=== PATIENT | female | born 1945 | race Caucasian/White ===

== ENCOUNTER 2016-11-13 08:26 | Emergency (ER) | payer MEDICARE, BC ==
[~2016-11-13] VITALS: Ht 157.5 cm; Wt 54.4 kg
[2016-11-13] MEDS ORDERED: LATANOPROST 0.005% (08:37)
[2016-11-13] MEDS ORDERED: LEVOTHYROXINE (08:37)
[2016-11-13] MEDS ORDERED: ALPRAZOLAM 0.5 MG (08:37)
[2016-11-13] MEDS ORDERED: PROAIR HFA 108 MCG/ACT AERS (08:37)
--- NOTE | 2016-11-13 08:38 | NUR ---
Dr Cordova at the bedside for eval and exam.
--- NOTE | 2016-11-13 08:58 | NUR ---
Pt out of ER for CT scan.
[2016-11-13 10:01] VITALS: BP 120/80
--- NOTE | 2016-11-13 10:07 | NUR ---
Patient discharged to home in stable conditon. Written and verbal after care instructions given. Patient verbalizes understanding of instructions.
== END 2016-11-13 10:08 | disposition home or self-care (01) ==
LOC: ER 08:26
DX: S40.011A Contusion of right shoulder, initial encounter (principal); S50.311A Abrasion of right elbow, initial encounter; W18.09XA Striking against other object with subsequent fall, initial encounter; Y93.89 Activity, other specified; Y92.9 Unspecified place or not applicable; Y99.9 Unspecified external cause status
CPT/HCPCS: 70450; 73030; 73080; 99284; A4663

== ENCOUNTER 2019-04-09 09:58 | Inpatient (IN) | payer MEDICARE, BC ==
[~2019-04-09] VITALS: Ht 157.5 cm; Wt 56.7 kg
--- NOTE | 2019-04-09 10:10 | NUR ---
Pt BIB [facility] for SOB and asthmatic episode from home. Patient ambulated with steady gait to bed. A/O x 3, no signs of neuro deficit.Pt c/o SOB while ambulating and non productive cough. Lungs are clear bilaterally, breathing is even and labored. Reports no chest pain, all pulses palpable , cap refil<3 seconds.Denies any GI/ symptoms. No n/v or abdominal pain. Decrease in skin turgor. Bed at lowest level, side rails upx2,call light in reach of patient.Fall precaution implemented per protocol.
[2019-04-09] MEDS ORDERED: methylPREDNISolone SOD SUCC 125 MG/2 ML VIAL IV ONE (10:15)
[2019-04-09] MEDS ORDERED: ALBUTEROL SULFATE 2.5 MG/3 ML NEBU NEB ONE (10:15)
[2019-04-09] MEDS ORDERED: IPRATROPIUM BROMIDE 0.5 MG/2.5 ML NEBU NEB ONE (10:15)
[2019-04-09] MEDS ORDERED: ALBUTEROL SULFATE 2.5 MG/3 ML NEBU ONE (10:16)
[2019-04-09] MEDS ORDERED: IPRATROPIUM BROMIDE 0.5 MG/2.5 ML NEBU ONE (10:17)
[2019-04-09] MEDS ORDERED: methylPREDNISolone SOD SUCC 125 MG/2 ML VIAL ONE (10:18)
[2019-04-09 10:24] LABS: BASOPHILS % (AUTO) 0.1 % (0.0-2.0); EOSINOPHILS # (AUTO) 0.1 K/uL (0.0-0.7); EOSINOPHILS % (AUTO) 0.6 % (0.0-7.0); HEMATOCRIT 44.6 % (31.2-41.9); HEMOGLOBIN 15.5 g/dL (10.9-14.3); LYMPHOCYTES # (AUTO) 0.7 K/uL (20.0-40.0); LYMPHOCYTES % (AUTO) 4.5 % (20.5-51.5); MEAN CORPUSCULAR HEMOGLOBIN 32.5 uug (24.7-32.8); MEAN CORPUSCULAR HGB CONC 35 g/dL (32.3-35.6); MEAN CORPUSCULAR VOLUME 93.4 fL (75.5-95.3); MONOCYTES # (AUTO) 0.8 K/uL (2.0-10.0); MONOCYTES % (AUTO) 5.2 % (0.0-11.0); NEUTROPHILS # (AUTO) 14.5 K/uL (1.8-8.9); NEUTROPHILS % (AUTO) 89.6 % (38.5-71.5); PLATELET COUNT (AUTO) 270 K/uL (179-408); RED BLOOD CELL COUNT(AUTO) 4.78 MIL/uL (3.63-4.92); WHITE BLOOD COUNT (AUTO) 16.2 K/uL (3.8-11.8)
[2019-04-09 10:27] LABS: CARBON DIOXIDE 22 mmol/L (21-32); CHLORIDE 99 mmol/L (98-107); CREATININE 0.8 mg/dL (0.6-1.3); GLUCOSE 161 mg/dL (74-106); POTASSIUM 3.7 mmol/L (3.5-5.1); UREA NITROGEN, BLOOD 21 mg/dL (7-18)
[2019-04-09] MEDS ORDERED: IV NORMAL SALINE 1000 ML BAG IV ONE ×2 (10:45→11:45)
[2019-04-09 10:46] LABS: ALANINE AMINOTRANSFERASE 40 U/L (14-59); ALKALINE PHOSPHATASE 80 U/L (50-136); ASPARTATE AMINOTRANSFERASE 24 U/L (15-37); BILIRUBIN,DIRECT 0.1 mg/dL (0.0-0.2); BILIRUBIN,TOTAL 0.6 mg/dL (0.2-1.0); TOTAL PROTEIN, SERUM 7.8 g/dL (6.4-8.2)
[2019-04-09] MEDS ORDERED: PIPERACILLIN SODIUM/TAZOBACTAM 3.375 G in IV DEXTROSE 5% 50 ML IV ONE (11:00)
[2019-04-09] MEDS ORDERED: PIPERACILLIN/TAZOBACTAM/D5W 50 ML IV ONE (11:22)
[2019-04-09 11:25] LABS: *BILIRUBIN,URIN NEGATIVE (NEGATIVE); *BLOOD, URINE NEGATIVE (NEGATIVE); *CLARITY,URINE CLEAR (CLEAR); *COLOR,URINE YELLOW (YELLOW); *KETONES,URINE NEGATIVE (NEGATIVE); *UROBILINOGEN,URINE 0.2 E.U./dl (NORMAL); LEUKOCYTE ESTERASE ,URINE NEGATIVE (NEGATIVE); NITRITE, URINE NEGATIVE (NEGATIVE); UGLUCOSE NEGATIVE (NEGATIVE)
--- NOTE | 2019-04-09 12:19 | NUR ---
Kymberly Soares, DO at bedside evaluating patient
--- NOTE | 2019-04-09 12:48 | NUR ---
Report given to SHARI Crisostomo
--- NOTE | 2019-04-09 12:48 | NUR ---
Patient transported to Tele in stable condition.
--- NOTE | 2019-04-09 12:48 | NUR ---
Fluids still infusing, about 500ml left in bag, SEPSIS fluid reassessment needs to be completed on inpatient floor.
[2019-04-09 12:50] VITALS: BP 123/70
--- NOTE | 2019-04-09 13:02 | NUR ---
ADMITTED FROM HOME VIA ER, A 73 YEAR OLD FEMALE WITH ADMITTING DIAGNOSIS OF SOB SECONDARY TO ASTHMA EXACERBATION. AWAKE, ALERT, AND ORIENTED X3. ABLE TO HELP WITH ADMISSION ASSESSMENT. PATIENT ON ROOM AIR, SATURATING 97%. WILL CALL DR. GUY FOR ADMISSION ORDERS.
[2019-04-09] MEDS ORDERED: ZOLPIDEM 5 MG TABLET PO PRN (14:00)
[2019-04-09] MEDS ORDERED: MAGNESIUM HYDROXIDE 30 ML LIQUID UDC PO PRN (14:00)
[2019-04-09] MEDS ORDERED: ONDANSETRON 4 MG/2 ML VIAL IV PRN (14:00)
[2019-04-09] MEDS ORDERED: ACETAMINOPHEN 325 MG TABLET PO PRN (14:00)
[2019-04-09] MEDS ORDERED: PIPERACILLIN SODIUM/TAZOBACTAM 3.375 G in IV DEXTROSE 5% 50 ML IV SCH (14:00)
[2019-04-09] MEDS ORDERED: Z GUARD REMEDY PASTE 57 GM TUBE TOP PRN (14:00)
[2019-04-09] MEDS ORDERED: HYDROCODONE/APAP 5-325MG TABLET PO PRN (14:00)
[2019-04-09] MEDS: methylPREDNISolone SOD SUCC 40 MG/ML VIAL IV SCH ×2 (14:32→21:14)
[2019-04-09 15:44] VITALS: BP 112/66
[2019-04-09] MEDS: ALBUTEROL SULFATE 2.5 MG/ 0.5 ML NEBU NEB PRN ×2 (17:31→20:47)
[2019-04-09] MEDS: IPRATROPIUM BROMIDE 0.5 MG/2.5 ML NEBU NEB PRN ×2 (17:32→20:47)
--- NOTE | 2019-04-09 17:47 | NUR ---
REMAINS SR ON MONITOR, TOLERATING RA WITH SAT AT 95-97%. HHN TX PRN GIVEN. OBSERVED
--- NOTE | 2019-04-09 20:00 | NUR ---
AWAKE,ALERTX4,PATIENTWANTED TO WALK, WALKED UP TO THE ELEVATOR TWICE,NO SOB.HEPLOCK CHANGED FROM RIGHT ANTECUBITAL TO LEFT HAND IN THE FOREARM, WANTED XANAX 5MG ,TOLD PATIENT THATS TOO MUCH,VERBALIZED SHE HAS BEEN TAKING 5MG FOR A LONG TIME WHEN SHE NEEDS IT.SOMETIMES TAKE 2.[address] GUY ORDERED ONLY 2.5 MG, PATIENT WANTS 5 MG, ENCOURAGE TO TAKE 2,5 MG TO MAKE HER BETTER,TOOK MEDICINE, MAKE COMFORTABLE.
[2019-04-09] MEDS: PIPERACILLIN/TAZOBACTAM/D5W 3.375 G in IV DEXTROSE 5% 50 ML IV SCH (21:14)
[2019-04-09] MEDS ORDERED: ALPRAZOLAM 0.25 MG TABLET PO ONE (21:15)
[2019-04-09] MEDS ORDERED: PIPERACILLIN/TAZOBACTAM/D5W 3.375 G in PREMIXED 1 EACH IV SCH (22:00)
[2019-04-10] MEDS: methylPREDNISolone SOD SUCC 40 MG/ML VIAL IV SCH ×3 (05:29→21:33)
[2019-04-10] MEDS: PIPERACILLIN/TAZOBACTAM/D5W 3.375 G in IV DEXTROSE 5% 50 ML IV SCH ×3 (05:29→21:33)
[2019-04-10 06:31] LABS: HEMATOCRIT 41.6 % (31.2-41.9); HEMOGLOBIN 14.4 g/dL (10.9-14.3); LYMPHOCYTES # (AUTO) 1.3 K/uL (20.0-40.0); LYMPHOCYTES % (AUTO) 9.6 % (20.5-51.5); MEAN CORPUSCULAR HEMOGLOBIN 33.5 uug (24.7-32.8); MEAN CORPUSCULAR HGB CONC 35 g/dL (32.3-35.6); MEAN CORPUSCULAR VOLUME 96.7 fL (75.5-95.3); MONOCYTES # (AUTO) 0.6 K/uL (2.0-10.0); MONOCYTES % (AUTO) 4.4 % (0.0-11.0); NEUTROPHILS # (AUTO) 11.8 K/uL (1.8-8.9); PLATELET COUNT (AUTO) 264 K/uL (179-408); WHITE BLOOD COUNT (AUTO) 13.7 K/uL (3.8-11.8)
[2019-04-10] MEDS: PANTOPRAZOLE SODIUM 40 MG TABLET.DR PO SCH (06:31)
[2019-04-10 06:46] LABS: CREATININE 0.6 mg/dL (0.6-1.3); MAGNESIUM 2.4 mg/dL (1.8-2.4); PHOSPHOROUS 3.2 mg/dL (2.5-4.9); POTASSIUM 3.6 mmol/L (3.5-5.1)
[2019-04-10 06:58] LABS: THYROID STIMULATING HORMONE 0.059 mIU/mL (0.358-3.740)
--- NOTE | 2019-04-10 07:41 | NUR ---
slept most of the nite,sinus rhythm, vital signs stable,still sleeping.up to the bathroom with help.
--- NOTE | 2019-04-10 08:00 | NUR ---
PATIENT RESTING COMFORTABLY IN BED IN ROOM AIR. NO SIGNS OF DISTRESS OR SOB. SINUS RHYTHM ON MONITOR.
--- NOTE | 2019-04-10 10:00 | NUR ---
SEEN BY DR. GUY. NO NEW ORDERS AND CONTINUE PLAN OF CARE. BREATHING TREATMENT NEED. STILL COUGHING GREEN SPUTUM. AWAITING SPUTUM CULTURE.
[2019-04-10 11:04] VITALS: BP 111/60
[2019-04-10] MEDS: ALBUTEROL SULFATE 2.5 MG/ 0.5 ML NEBU NEB PRN (14:06)
[2019-04-10] MEDS: IPRATROPIUM BROMIDE 0.5 MG/2.5 ML NEBU NEB PRN (14:06)
[2019-04-10 15:31] VITALS: BP 121/51
--- NOTE | 2019-04-10 18:56 | NUR ---
NO ACUTE CHANGE. CONTINUE ROOM AIR WITHOUT ANY DISTRESS. UP AND ABOUT. SINUS RHYTHM ON MONITOR.
--- NOTE | 2019-04-10 19:30 | NUR ---
RECEIVED PT AWAKE, ALERT AND ORIENTEDX4. PT SEEN IN THE HALLWAY WALKING FOR EXERCISE. PT IN NO ACUTE DISTRESS. IV INTACT. SAFETY AND COMFORT PROVIDED. WILL CONTINUE TO MONITOR.
[2019-04-10 20:00] VITALS: BP 120/57
[2019-04-11] VITALS: BP 110/57
[2019-04-11 04:30] VITALS: BP 118/48
[2019-04-11] MEDS: PIPERACILLIN/TAZOBACTAM/D5W 3.375 G in IV DEXTROSE 5% 50 ML IV SCH (05:03)
[2019-04-11] MEDS: methylPREDNISolone SOD SUCC 40 MG/ML VIAL IV SCH (05:04)
[2019-04-11] MEDS: PANTOPRAZOLE SODIUM 40 MG TABLET.DR PO SCH (06:04)
[2019-04-11 06:25] LABS: BASOPHILS % (AUTO) 0.2 % (0.0-2.0); HEMATOCRIT 40.1 % (31.2-41.9); HEMOGLOBIN 13.9 g/dL (10.9-14.3); LYMPHOCYTES # (AUTO) 1.3 K/uL (20.0-40.0); LYMPHOCYTES % (AUTO) 9.5 % (20.5-51.5); MEAN CORPUSCULAR HEMOGLOBIN 33.7 uug (24.7-32.8); MEAN CORPUSCULAR HGB CONC 35 g/dL (32.3-35.6); MEAN CORPUSCULAR VOLUME 97.2 fL (75.5-95.3); MONOCYTES # (AUTO) 1.1 K/uL (2.0-10.0); MONOCYTES % (AUTO) 8.3 % (0.0-11.0); PLATELET COUNT (AUTO) 274 K/uL (179-408); RED BLOOD CELL COUNT(AUTO) 4.12 MIL/uL (3.63-4.92); WHITE BLOOD COUNT (AUTO) 13.5 K/uL (3.8-11.8)
[2019-04-11 06:27] LABS: CREATININE 0.7 mg/dL (0.6-1.3); MAGNESIUM 2.3 mg/dL (1.8-2.4); PHOSPHOROUS 3.4 mg/dL (2.5-4.9); POTASSIUM 3.6 mmol/L (3.5-5.1)
--- NOTE | 2019-04-11 06:27 | NUR ---
PT SLEPT INTERMITTENTLY. PRESCRIBED MEDICATION GIVEN AND PT TOLERATED IT WELL. IV INTACT. PT COMPLAINING THAT SHE HAS URINARY RETENTION. BLADDER SCAN SHOWS 14ML .PT ASKING FOR HER PROBIOTICS. WILL ENDORSE TO INCOMING NURSE. SAFETY AND COMFORT PROVIDED. ALL NEEDS ARE MET. WILL ENDORSE ACCORDINGLY TO INCOMING NURSE FOR CONTINUITY OF CARE.
--- NOTE | 2019-04-11 08:00 | NUR ---
Received pt. resting in bed alert oriented x4. pt. denies pain/ discomfort. pt. denies SOB/ difficulty breathing. IV in L wrist 20 gauge intact patent saline lock. pt. on room air. Safety measures in place. call light within reach. Will continue to monitor pt.
[2019-04-11] MEDS: IPRATROPIUM BROMIDE 0.5 MG/2.5 ML NEBU NEB PRN (08:57)
[2019-04-11] MEDS: ALBUTEROL SULFATE 2.5 MG/ 0.5 ML NEBU NEB PRN (08:57)
--- NOTE | 2019-04-11 11:30 | NUR ---
Pt. discharged home via private car with friend. pt. discharged to home self-care. pt. does not want to take prescribed antibiotics. Dr. Soares aware. Pt. states she will get antibiotics from PCP. IV removed. ID band removed. stone paver walked pt. downstairs. All belongings with pt. Pt. signed all discharge paperwork.
[2019-04-11 11:52] VITALS: BP 113/57
== END 2019-04-11 12:00 | disposition home health service (06) | DRG 871 ==
LOC: ER 09:58 → TELE3 12:32
PROVIDERS: ADMIT Student in an Organized Health Care Education/Training Program; ATTEND Student in an Organized Health Care Education/Training Program
DX: A41.9 Sepsis, unspecified organism (principal); J15.6 Pneumonia due to other Gram-negative bacteria; J44.1 Chronic obstructive pulmonary disease with (acute) exacerbation; J44.0 Chronic obstructive pulmonary disease with (acute) lower respiratory infection; J45.901 Unspecified asthma with (acute) exacerbation; E87.2 Acidosis; E87.1 Hypo-osmolality and hyponatremia; I70.0 Atherosclerosis of aorta; E86.0 Dehydration; E03.9 Hypothyroidism, unspecified
CPT/HCPCS: 36415; 70030-TC; 71045; 83605; 83735; 84100; 84443; 85025; 87040; 87070; 87077; 87086; 87400; 93005; 94640; 94664; A4663; G0378; J2543; J2920; J2930; J3590; J7030; J7060

== ENCOUNTER 2020-01-11 15:38 | Emergency (ER) | payer MEDICARE, BC ==
[~2020-01-11] VITALS: Ht 157.5 cm; Wt 59.0 kg
[~2020-01-11 15:38] MED LIST: ALBU8.5H8 INH; ALPR0.5T8 PO; AMOX-430 PO; CETI-90 PO; FLUT1BLS IH; LATA2.5D15 EACHEYE; LEVO112T5 PO; MONT10TA22 PO; PRED20TA PO
[2020-01-11 16:56] LABS: BASOPHILS # (AUTO) 0.1 K/uL (0.0-8.0); BASOPHILS % (AUTO) 0.9 % (0.0-2.0); EOSINOPHILS # (AUTO) 0.3 K/uL (0.0-0.7); EOSINOPHILS % (AUTO) 4.6 % (0.0-7.0); HEMOGLOBIN 14.9 g/dL (10.9-14.3); LYMPHOCYTES # (AUTO) 2.2 K/uL (20.0-40.0); LYMPHOCYTES % (AUTO) 28.9 % (20.5-51.5); MEAN CORPUSCULAR HEMOGLOBIN 33.4 uug (24.7-32.8); MEAN CORPUSCULAR HGB CONC 35 g/dL (32.3-35.6); MEAN CORPUSCULAR VOLUME 96.2 fL (75.5-95.3); MONOCYTES # (AUTO) 0.7 K/uL (2.0-10.0); MONOCYTES % (AUTO) 9.5 % (0.0-11.0); NEUTROPHILS # (AUTO) 4.3 K/uL (1.8-8.9); NEUTROPHILS % (AUTO) 56.1 % (38.5-71.5); PLATELET COUNT (AUTO) 278 K/uL (179-408); RED BLOOD CELL COUNT(AUTO) 4.47 MIL/uL (3.63-4.92); WHITE BLOOD COUNT (AUTO) 7.6 K/uL (3.8-11.8)
[2020-01-11] MEDS ORDERED: TDAP DIPH,PERTUSS,TET VAC/PF 0.5 ML DISP.SYRIN IM ONE ×2 (17:00→17:06)
[2020-01-11 17:07] LABS: BILIRUBIN,DIRECT 0.1 mg/dL (0.0-0.2); BILIRUBIN,TOTAL 0.3 mg/dL (0.2-1.0); CREATININE 0.8 mg/dL (0.6-1.3); POTASSIUM 4.1 mmol/L (3.5-5.1); TOTAL PROTEIN, SERUM 7.4 g/dL (6.4-8.2)
--- NOTE | 2020-01-11 17:12 | NUR ---
Patient is resting comfortably on gurney while using her personal electronic device, NAD, calm & breathing easily.
--- NOTE | 2020-01-11 17:36 | NUR ---
Patient discharged to home in stable condition with brisk steady gait. Written and verbal after care instructions given to patient. Patient verbalizes understanding & compliance of instructions. Stressed follow up with her primary doctor or return to ER for worsening s/s.
== END 2020-01-11 17:36 | disposition home or self-care (01) ==
LOC: ER 15:42
DX: R19.5 Other fecal abnormalities (principal); R42 Dizziness and giddiness; S50.811A Abrasion of right forearm, initial encounter; S70.02XA Contusion of left hip, initial encounter; W01.0XXA Fall on same level from slipping, tripping and stumbling without subsequent striking against object, initial encounter; Y93.89 Activity, other specified; Y99.8 Other external cause status; Z91.018 Allergy to other foods; Z79.899 Other long term (current) drug therapy; R03.0 Elevated blood-pressure reading, without diagnosis of hypertension
CPT/HCPCS: 36415; 70030-TC; 83690; 85025; 85730; 86850; 86900; 86901; 90715; 93005; A4663

== ENCOUNTER 2020-04-25 21:49 | Emergency (ER) | payer MEDICARE, OTHER ==
[~2020-04-25] VITALS: Ht 157.5 cm; Wt 54.4 kg
[2020-04-25] MEDS ORDERED: LIDOCAINE HCL 2% 20 ML VIAL IJ ONE (22:15)
[2020-04-25] MEDS ORDERED: PIPERACILLIN SODIUM/TAZOBACTAM 3.375 G in IV DEXTROSE 5% 50 ML IV ONE (22:15)
[2020-04-25] MEDS ORDERED: TDAP DIPH,PERTUSS,TET VAC/PF 0.5 ML DISP.SYRIN IM ONE ×2 (22:15→22:33)
[2020-04-25] MEDS ORDERED: LIDOCAINE HCL 2% 20 ML VIAL ONE (22:21)
[2020-04-25] MEDS ORDERED: AMOX-430 PO (22:25)
[2020-04-25] MEDS ORDERED: PIPERACILLIN/TAZOBACTAM/D5W 50 ML IV ONE (22:32)
--- NOTE | 2020-04-25 23:05 | NUR ---
PT WAS EVALUATED BY DR AGUIRRE. PT WAS D/C'd TO HOME. D/C INSTRUCTIONS GIVEN TO THE PT BY DR AGUIRRE.
[2020-04-25 23:14] VITALS: BP 115/69
[2020-04-26] MEDS ORDERED: AMOX-430 PO (09:10)
== END 2020-04-25 23:14 | disposition home or self-care (01) ==
LOC: ER 21:50
DX: S61.250A Open bite of right index finger without damage to nail, initial encounter (principal); W55.01XA Bitten by cat, initial encounter; Y92.89 Other specified places as the place of occurrence of the external cause
CPT/HCPCS: 12001; 90471; 90715; 96365; 99284; J2543; J3490; A4663

== ENCOUNTER 2021-11-28 11:38 | Emergency (ER) | payer MEDICARE, OTHER ==
[~2021-11-28] VITALS: Ht 157.5 cm; Wt 56.7 kg
--- NOTE | 2021-11-28 12:33 | NUR ---
at bedside for evaluation.
--- NOTE | 2021-11-28 14:10 | NUR ---
Patient discharged to home in stable condition. Written and verbal after care instructions given. Patient verbalizes understanding of instructions. Stressed follow up or return to ER for worsening s/s.
[2021-11-28 14:26] VITALS: BP 121/70
== END 2021-11-28 14:10 | disposition home or self-care (01) ==
LOC: ER 12:03
DX: M79.662 Pain in left lower leg (principal); J45.909 Unspecified asthma, uncomplicated; S80.12XA Contusion of left lower leg, initial encounter; W10.1XXA Fall (on)(from) sidewalk curb, initial encounter; Y92.89 Other specified places as the place of occurrence of the external cause; Z91.018 Allergy to other foods; L30.9 Dermatitis, unspecified
CPT/HCPCS: A4663

== ENCOUNTER 2022-12-20 19:14 | Inpatient (IN) | payer MEDICARE, OTHER ==
[~2022-12-20] VITALS: Ht 157.5 cm; Wt 55.3 kg
[2022-12-20] MEDS ORDERED: LEVO88TA5 PO (20:19)
[2022-12-20] MEDS ORDERED: ONDANSETRON 4 MG/2 ML VIAL ONE (20:23)
[2022-12-20] MEDS ORDERED: KETOROLAC TROMETHAMINE 15 MG INJ ONE (20:23)
[2022-12-20] MEDS ORDERED: ONDANSETRON 4 MG/2 ML VIAL IV ONE (20:30)
[2022-12-20] MEDS ORDERED: KETOROLAC TROMETHAMINE 15 MG INJ IVP ONE (20:30)
[2022-12-20] MEDS ORDERED: IV NORMAL SALINE 1000 ML BAG IV ONE (20:30)
[2022-12-20 20:40] LABS: BASOPHILS # (AUTO) 0.1 K/UL (0.0-0.2); BASOPHILS % (AUTO) 0.8 % (0.0-2.0); EOSINOPHILS # (AUTO) 0.1 K/uL (0.0-0.7); EOSINOPHILS % (AUTO) 1.2 % (0.0-7.0); HEMATOCRIT 46.7 % (31.2-41.9); HEMOGLOBIN 15.8 g/dL (10.9-14.3); LYMPHOCYTES # (AUTO) 2.1 K/uL (0.8-4.8); LYMPHOCYTES % (AUTO) 19.5 % (20.5-51.5); MEAN CORPUSCULAR HEMOGLOBIN 32.4 uug (24.7-32.8); MEAN CORPUSCULAR HGB CONC 34 g/dL (32.3-35.6); MONOCYTES % (AUTO) 9.4 % (0.0-11.0); NEUTROPHILS # (AUTO) 7.5 K/uL (1.8-8.9); NEUTROPHILS % (AUTO) 69.1 % (38.5-71.5); PLATELET COUNT (AUTO) 330 K/uL (179-408); RED BLOOD CELL COUNT(AUTO) 4.87 MIL/uL (3.63-4.92); RED CELL DISTRIBUTION WIDTH 14.1 % (12.3-17.7); WHITE BLOOD COUNT (AUTO) 10.8 K/uL (3.8-11.8)
[2022-12-20 20:42] LABS: DIFFERENTIAL COMMENT 1
[2022-12-20 20:49] LABS: CALCIUM 9.9 mg/dL (8.5-10.1); CARBON DIOXIDE 23 mmol/L (21-32); CHLORIDE 100 mmol/L (98-107); CREATININE 0.7 mg/dL (0.6-1.3); GLUCOSE 127 mg/dL (74-106); SODIUM SERUM 137 mmol/L (136-145); UREA NITROGEN, BLOOD 19 mg/dL (7-18)
[2022-12-20 21:04] LABS: ALANINE AMINOTRANSFERASE 38 U/L (14-59); ALBUMIN 3.4 g/dL (3.4-5.0); ALKALINE PHOSPHATASE 81 U/L (50-136); ASPARTATE AMINOTRANSFERASE 27 U/L (15-37); BILIRUBIN,DIRECT 0.1 mg/dL (0.0-0.2); BILIRUBIN,TOTAL 0.4 mg/dL (0.2-1.0); TOTAL PROTEIN, SERUM 7.6 g/dL (6.4-8.2)
[2022-12-20 23:38] VITALS: BP 128/65; TEMP 98.3; O2SAT 96
[2022-12-21] MEDS ORDERED: MAGNESIUM HYDROXIDE 30 ML LIQUID UDC PO PRN
[2022-12-21] MEDS ORDERED: KETOROLAC TROMETHAMINE 15 MG INJ IVP PRN
[2022-12-21] MEDS ORDERED: ONDANSETRON 4 MG/2 ML VIAL IV PRN
[2022-12-21] MEDS ORDERED: ZOLPIDEM 5 MG TABLET PO PRN
[2022-12-21] MEDS ORDERED: IV D5 1/2 NS 1000 ML 1,000 ML IV PRN
[2022-12-21] MEDS ORDERED: REMEDY ESSENTIAL ZINC PASTE 113 GM TP PRN
[2022-12-21] MEDS ORDERED: ACETAMINOPHEN 325 MG TABLET PO PRN
[2022-12-21] MEDS ORDERED: ALPRAZOLAM 0.5 MG TABLET PO PRN
[2022-12-21] MEDS ORDERED: ENOXAPARIN SODIUM 40 MG/0.4 ML DISP.SYRIN SQ SCH
[2022-12-21] MEDS ORDERED: ALBUTEROL SULFATE 2.5 MG/3 ML NEBU NEB PRN (00:30)
[2022-12-21] MEDS ORDERED: LORAZEPAM 2 MG/1 ML VIAL IV PRN (01:00)
[2022-12-21 04:00] VITALS: BP 128/72; TEMP 98.2; O2SAT 95
[2022-12-21] MEDS: PANTOPRAZOLE SODIUM 40 MG TABLET.DR PO SCH ×2 (06:43→08:06)
[2022-12-21 07:11] LABS: BASOPHILS # (AUTO) 0.1 K/UL (0.0-0.2); BASOPHILS % (AUTO) 1.2 % (0.0-2.0); EOSINOPHILS # (AUTO) 0.4 K/uL (0.0-0.7); EOSINOPHILS % (AUTO) 6.3 % (0.0-7.0); HEMATOCRIT 38.6 % (31.2-41.9); HEMOGLOBIN 13.3 g/dL (10.9-14.3); LYMPHOCYTES # (AUTO) 2.3 K/uL (0.8-4.8); LYMPHOCYTES % (AUTO) 32.9 % (20.5-51.5); MEAN CORPUSCULAR HGB CONC 34 g/dL (32.3-35.6); MEAN CORPUSCULAR VOLUME 96.1 fL (75.5-95.3); MONOCYTES # (AUTO) 0.8 K/uL (0.1-1.30); MONOCYTES % (AUTO) 10.7 % (0.0-11.0); NEUTROPHILS # (AUTO) 3.4 K/uL (1.8-8.9); NEUTROPHILS % (AUTO) 48.9 % (38.5-71.5); PLATELET COUNT (AUTO) 276 K/uL (179-408); RED BLOOD CELL COUNT(AUTO) 4.02 MIL/uL (3.63-4.92); RED CELL DISTRIBUTION WIDTH 13.9 % (12.3-17.7)
[2022-12-21 07:26] LABS: DIFFERENTIAL COMMENT 1
[2022-12-21 07:37] LABS: CALCIUM 7.9 mg/dL (8.5-10.1); CARBON DIOXIDE 25 mmol/L (21-32); CHLORIDE 106 mmol/L (98-107); CREATININE 0.6 mg/dL (0.6-1.3); GLUCOSE 102 mg/dL (74-106); PHOSPHOROUS 2.9 mg/dL (2.5-4.9); POTASSIUM 3.8 mmol/L (3.5-5.1); SODIUM SERUM 138 mmol/L (136-145); UREA NITROGEN, BLOOD 14 mg/dL (7-18)
[2022-12-21 08:05] LABS: MAGNESIUM 2.2 mg/dL (1.8-2.4)
[2022-12-21] MEDS: FLUTICASONE/VILANTEROL 1 EACH BLST.W.DEV IH SCH ×2 (09:00→13:23)
[2022-12-21] MEDS ORDERED: LEVOTHYROXINE SODIUM 88 MCG TABLET PO SCH (09:00)
[2022-12-21 11:38] VITALS: BP 130/68; TEMP 97.6; O2SAT 98
[2022-12-21] MEDS ORDERED: CETIRIZINE HCL 10 MG TABLET PO SCH (17:00)
[2022-12-21] MEDS ORDERED: MONTELUKAST SODIUM 10 MG TABLET PO SCH (17:00)
[2022-12-21] MEDS ORDERED: LATANOPROST OPHT DROP 2.5 ML BOTTLE EACHEYE SCH (18:00)
== END 2022-12-21 14:20 | disposition home or self-care (01) | DRG 392 ==
LOC: ER 19:23 → MEDSURG3 22:26
PROVIDERS: ADMIT Student in an Organized Health Care Education/Training Program; ATTEND Nurse Practitioner Acute Care
DX: A09 Infectious gastroenteritis and colitis, unspecified (principal); E86.0 Dehydration; T39.395A Adverse effect of other nonsteroidal anti-inflammatory drugs [NSAID], initial encounter; K25.9 Gastric ulcer, unspecified as acute or chronic, without hemorrhage or perforation; K52.89 Other specified noninfective gastroenteritis and colitis; Y92.89 Other specified places as the place of occurrence of the external cause; M19.031 Primary osteoarthritis, right wrist; L30.9 Dermatitis, unspecified; J45.909 Unspecified asthma, uncomplicated; R79.89 Other specified abnormal findings of blood chemistry; K57.30 Diverticulosis of large intestine without perforation or abscess without bleeding; Z66 Do not resuscitate; Z79.51 Long term (current) use of inhaled steroids; Z98.890 Other specified postprocedural states; Z87.19 Personal history of other diseases of the digestive system; Z79.899 Other long term (current) drug therapy; Z88.2 Allergy status to sulfonamides; Z91.018 Allergy to other foods
CPT/HCPCS: 36415; 71045; 83605; 83690; 83735; 84100; 84484; 85025; 85730; 93005; A4663; G0378; J1650; J1885; J2060; J2405; J7040

== ENCOUNTER 2023-03-03 14:37 | Inpatient (IN) | payer MEDICARE, OTHER ==
[~2023-03-03] VITALS: Ht 157.5 cm; Wt 53.1 kg
[~2023-03-03 14:37] MED LIST changes: -AMOX-430 PO; -LEVO112T5 PO; +LEVO88TA5 PO; -PRED20TA PO
[2023-03-03] MEDS ORDERED: IV NORMAL SALINE 1000 ML BAG IV ONE (14:45)
[2023-03-03] MEDS ORDERED: ONDANSETRON 4 MG/2 ML VIAL IV ONE ×2 (14:45→17:00)
[2023-03-03] MEDS ORDERED: FAMOTIDINE. 20 MG/2 ML VIAL IV ONE ×2 (14:45→14:50)
[2023-03-03] MEDS ORDERED: LIDOCAINE VISCUS 2% 15 ML UDC MM ONE (14:45)
[2023-03-03] MEDS ORDERED: MAG HYDROX/AL HYDROX/SIMETH 30 ML LIQUID UDC PO ONE (14:45)
[2023-03-03] MEDS ORDERED: MAG HYDROX/AL HYDROX/SIMETH 30 ML LIQUID UDC ONE (14:50)
[2023-03-03] MEDS ORDERED: ONDANSETRON 4 MG/2 ML VIAL ONE (14:50)
[2023-03-03] MEDS ORDERED: LIDOCAINE VISCUS 2% 15 ML UDC ONE (14:50)
[2023-03-03 15:14] LABS: BASOPHILS # (AUTO) 0.4 K/UL (0.0-0.2); BASOPHILS % (AUTO) 3.2 % (0.0-2.0); CALCIUM 9.4 mg/dL (8.5-10.1); CARBON DIOXIDE 24 mmol/L (21-32); CHLORIDE 102 mmol/L (98-107); CREATININE 0.7 mg/dL (0.6-1.3); DIFFERENTIAL COMMENT 0; EOSINOPHILS # (AUTO) 0.5 K/uL (0.0-0.7); EOSINOPHILS % (AUTO) 3.6 % (0.0-7.0); GLUCOSE 138 mg/dL (74-106); HEMATOCRIT 43.9 % (31.2-41.9); HEMOGLOBIN 14.7 g/dL (10.9-14.3); LYMPHOCYTES # (AUTO) 1.3 K/uL (0.8-4.8); LYMPHOCYTES % (AUTO) 10.6 % (20.5-51.5); MEAN CORPUSCULAR HEMOGLOBIN 32.6 uug (24.7-32.8); MEAN CORPUSCULAR HGB CONC 34 g/dL (32.3-35.6); MEAN CORPUSCULAR VOLUME 96.9 fL (75.5-95.3); MONOCYTES # (AUTO) 0.7 K/uL (0.1-1.30); MONOCYTES % (AUTO) 5.6 % (0.0-11.0); NEUTROPHILS # (AUTO) 9.7 K/uL (1.8-8.9); PLATELET COUNT (AUTO) 195 K/uL (179-408); RED BLOOD CELL COUNT(AUTO) 4.53 MIL/uL (3.63-4.92); RED CELL DISTRIBUTION WIDTH 14.1 % (12.3-17.7); SODIUM SERUM 136 mmol/L (136-145); UREA NITROGEN, BLOOD 23 mg/dL (7-18); WHITE BLOOD COUNT (AUTO) 12.6 K/uL (3.8-11.8)
[2023-03-03 15:16] LABS: POTASSIUM 4.1 mmol/L (3.5-5.1)
[2023-03-03 15:23] LABS: ALANINE AMINOTRANSFERASE 41 U/L (14-59); ALBUMIN 2.9 g/dL (3.4-5.0); ALKALINE PHOSPHATASE 63 U/L (50-136); ASPARTATE AMINOTRANSFERASE 29 U/L (15-37); BILIRUBIN,DIRECT < 0.1 mg/dL (0.0-0.2); BILIRUBIN,TOTAL 0.2 mg/dL (0.2-1.0); TOTAL PROTEIN, SERUM 6.8 g/dL (6.4-8.2)
[2023-03-03 15:32] LABS: *BILIRUBIN,URIN NEGATIVE (NEGATIVE); *BLOOD, URINE NEGATIVE (NEGATIVE); *CLARITY,URINE CLEAR (CLEAR); *COLOR,URINE YELLOW (YELLOW); *KETONES,URINE NEGATIVE (NEGATIVE); *PROTEIN,URINE NEGATIVE (NEGATIVE); *UROBILINOGEN,URINE 0.2 E.U./dl (NORMAL); LEUKOCYTE ESTERASE ,URINE TRACE (NEGATIVE); NITRITE, URINE NEGATIVE (NEGATIVE); UGLUCOSE NEGATIVE (NEGATIVE)
[2023-03-03 15:34] LABS: LIPASE 48 U/L (16-77)
[2023-03-03 16:05] LABS: RBC,URINE NONE SEEN /HPF (0-3)
[2023-03-03 16:06] LABS: BACTERIA,URINE FEW /HPF (NONE SEEN); SQUAMOUS EPITHELIAL CELL,UR MODERATE /HPF (NONE SEEN)
[2023-03-03] MEDS ORDERED: MORPHINE SULFATE 2 MG/1 ML DISP.SYRIN IV ONE (17:00)
[2023-03-03] MEDS ORDERED: REMEDY ESSENTIAL ZINC PASTE 113 GM TP PRN (18:45)
[2023-03-03] MEDS ORDERED: ACETAMINOPHEN 325 MG TABLET PO PRN (18:45)
[2023-03-03] MEDS: PANTOPRAZOLE SODIUM 40 MG VIAL IV SCH (18:45)
[2023-03-03] MEDS ORDERED: ONDANSETRON 4 MG/2 ML VIAL IV PRN (18:45)
[2023-03-03] MEDS ORDERED: ALPRAZOLAM 0.5 MG TABLET PO PRN (22:00)
[2023-03-03 22:14] VITALS: BP 131/68; TEMP 98; O2SAT 93
[2023-03-03] MEDS: IV NS 1000 ML 1,000 ML IV PRN (22:18)
[2023-03-03] MEDS: SUCRALFATE 1 G TABLET PO SCH (22:25)
[2023-03-04 04:55] VITALS: BP 139/72; TEMP 98.2; O2SAT 97
[2023-03-04 08:45] LABS: BASOPHILS # (AUTO) 0.1 K/UL (0.0-0.2); BASOPHILS % (AUTO) 0.8 % (0.0-2.0); EOSINOPHILS # (AUTO) 0.2 K/uL (0.0-0.7); EOSINOPHILS % (AUTO) 2.3 % (0.0-7.0); HEMATOCRIT 43.2 % (31.2-41.9); HEMOGLOBIN 14.8 g/dL (10.9-14.3); LYMPHOCYTES # (AUTO) 2.6 K/uL (0.8-4.8); LYMPHOCYTES % (AUTO) 29.5 % (20.5-51.5); MEAN CORPUSCULAR HEMOGLOBIN 33.8 uug (24.7-32.8); MEAN CORPUSCULAR HGB CONC 34 g/dL (32.3-35.6); MEAN CORPUSCULAR VOLUME 98.6 fL (75.5-95.3); MONOCYTES % (AUTO) 11.1 % (0.0-11.0); NEUTROPHILS # (AUTO) 4.9 K/uL (1.8-8.9); NEUTROPHILS % (AUTO) 56.3 % (38.5-71.5); PLATELET COUNT (AUTO) 285 K/uL (179-408); RED BLOOD CELL COUNT(AUTO) 4.38 MIL/uL (3.63-4.92); RED CELL DISTRIBUTION WIDTH 14.1 % (12.3-17.7); WHITE BLOOD COUNT (AUTO) 8.7 K/uL (3.8-11.8)
[2023-03-04 08:59] LABS: CALCIUM 8.3 mg/dL (8.5-10.1); CARBON DIOXIDE 25 mmol/L (21-32); CHLORIDE 106 mmol/L (98-107); CREATININE 0.7 mg/dL (0.6-1.3); GLUCOSE 90 mg/dL (74-106); MAGNESIUM 2.4 mg/dL (1.8-2.4); PHOSPHOROUS 2.8 mg/dL (2.5-4.9); SODIUM SERUM 139 mmol/L (136-145); UREA NITROGEN, BLOOD 20 mg/dL (7-18)
[2023-03-04] MEDS: SUCRALFATE 1 G TABLET PO SCH ×4 (08:59→20:11)
[2023-03-04 09:12] LABS: DIFFERENTIAL COMMENT 1
[2023-03-04 10:00] LABS: THYROID STIMULATING HORMONE 1.381 mIU/mL (0.358-3.740)
[2023-03-04] MEDS: PANTOPRAZOLE SODIUM 40 MG VIAL IV SCH (11:10)
[2023-03-04 11:38] VITALS: BP 121/59; TEMP 98.1; O2SAT 98
[2023-03-04] MEDS: IV NS 1000 ML 1,000 ML IV PRN (12:00)
[2023-03-04 15:38] VITALS: BP 161/81; TEMP 98.3; O2SAT 98
[2023-03-04] MEDS ORDERED: FAMO20TA8 PO (15:50)
[2023-03-04] MEDS ORDERED: ALPRAZOLAM 0.5 MG TABLET PO PRN (16:57)
[2023-03-04] MEDS ORDERED: FAMOTIDINE 20 MG TABLET PO SCH (17:00)
[2023-03-04] MEDS: MONTELUKAST SODIUM 10 MG TABLET PO SCH (17:12)
[2023-03-04] MEDS: MAGNESIUM HYDROXIDE 30 ML LIQUID UDC PO PRN (20:11)
[2023-03-04] MEDS: LATANOPROST OPHT DROP 2.5 ML BOTTLE EACHEYE SCH (20:45)
[2023-03-04 21:27] VITALS: BP 116/61; TEMP 98.8; O2SAT 94
[2023-03-05] MEDS: IV NS 1000 ML 1,000 ML IV PRN ×2 (01:37→14:12)
[2023-03-05 05:26] VITALS: BP 113/66; TEMP 98.8; O2SAT 90
[2023-03-05] MEDS: LEVOTHYROXINE SODIUM 88 MCG TABLET PO SCH (06:21)
[2023-03-05 06:32] LABS: BASOPHILS # (AUTO) 0.1 K/UL (0.0-0.2); BASOPHILS % (AUTO) 0.8 % (0.0-2.0); EOSINOPHILS # (AUTO) 0.3 K/uL (0.0-0.7); EOSINOPHILS % (AUTO) 3.3 % (0.0-7.0); HEMATOCRIT 40.2 % (31.2-41.9); HEMOGLOBIN 13.9 g/dL (10.9-14.3); LYMPHOCYTES # (AUTO) 2.7 K/uL (0.8-4.8); LYMPHOCYTES % (AUTO) 31.4 % (20.5-51.5); MEAN CORPUSCULAR HEMOGLOBIN 33.4 uug (24.7-32.8); MEAN CORPUSCULAR HGB CONC 35 g/dL (32.3-35.6); MONOCYTES # (AUTO) 0.9 K/uL (0.1-1.30); MONOCYTES % (AUTO) 10.2 % (0.0-11.0); NEUTROPHILS # (AUTO) 4.7 K/uL (1.8-8.9); NEUTROPHILS % (AUTO) 54.3 % (38.5-71.5); PLATELET COUNT (AUTO) 276 K/uL (179-408); RED BLOOD CELL COUNT(AUTO) 4.15 MIL/uL (3.63-4.92); RED CELL DISTRIBUTION WIDTH 13.8 % (12.3-17.7); WHITE BLOOD COUNT (AUTO) 8.6 K/uL (3.8-11.8)
[2023-03-05 06:53] LABS: DIFFERENTIAL COMMENT 1
[2023-03-05] MEDS: SUCRALFATE 1 G TABLET PO SCH ×4 (06:58→21:20)
[2023-03-05] MEDS ORDERED: PANTOPRAZOLE SODIUM 40 MG TABLET.DR PO SCH (07:00)
[2023-03-05 07:17] LABS: ALBUMIN 2.5 g/dL (3.4-5.0); BILIRUBIN,DIRECT 0.1 mg/dL (0.0-0.2); BILIRUBIN,TOTAL 0.3 mg/dL (0.2-1.0); CALCIUM 8.2 mg/dL (8.5-10.1); CREATININE 0.7 mg/dL (0.6-1.3); MAGNESIUM 2.9 mg/dL (1.8-2.4); PHOSPHOROUS 2.8 mg/dL (2.5-4.9); POTASSIUM 3.9 mmol/L (3.5-5.1); TOTAL PROTEIN, SERUM 5.9 g/dL (6.4-8.2)
[2023-03-05 11:14] VITALS: BP 135/75; TEMP 97.5; O2SAT 96
[2023-03-05] MEDS: MAGNESIUM HYDROXIDE 30 ML LIQUID UDC PO PRN (13:09)
[2023-03-05] MEDS ORDERED: MAGNESIUM CITRATE 296 ML BOTTLE PO ONE (13:30)
[2023-03-05] MEDS: FLEET ENEMA 133 ML BOTTLE RC ONE ×2 (13:30→14:06)
[2023-03-05 15:30] VITALS: BP 120/65; TEMP 98
[2023-03-05] MEDS: MONTELUKAST SODIUM 10 MG TABLET PO SCH (16:09)
[2023-03-05] MEDS: PANTOPRAZOLE SODIUM 40 MG TABLET.DR PO SCH (16:09)
[2023-03-05] MEDS: FLUTICASONE/VILANTEROL 1 EACH BLST.W.DEV IH SCH (16:10)
[2023-03-05 20:00] VITALS: BP 143/68; TEMP 98.9; O2SAT 96
[2023-03-05] MEDS: LATANOPROST OPHT DROP 2.5 ML BOTTLE EACHEYE SCH (21:20)
[2023-03-06 04:00] VITALS: BP 138/71; TEMP 98.2; O2SAT 97
[2023-03-06] MEDS: LEVOTHYROXINE SODIUM 88 MCG TABLET PO SCH (06:36)
[2023-03-06 06:47] LABS: BASOPHILS # (AUTO) 0.1 K/UL (0.0-0.2); BASOPHILS % (AUTO) 0.8 % (0.0-2.0); EOSINOPHILS # (AUTO) 0.4 K/uL (0.0-0.7); EOSINOPHILS % (AUTO) 4.6 % (0.0-7.0); HEMOGLOBIN 14.2 g/dL (10.9-14.3); LYMPHOCYTES # (AUTO) 2.6 K/uL (0.8-4.8); LYMPHOCYTES % (AUTO) 31.1 % (20.5-51.5); MEAN CORPUSCULAR HEMOGLOBIN 32.8 uug (24.7-32.8); MEAN CORPUSCULAR HGB CONC 35 g/dL (32.3-35.6); MONOCYTES # (AUTO) 0.9 K/uL (0.1-1.30); MONOCYTES % (AUTO) 10.4 % (0.0-11.0); NEUTROPHILS # (AUTO) 4.4 K/uL (1.8-8.9); NEUTROPHILS % (AUTO) 53.1 % (38.5-71.5); PLATELET COUNT (AUTO) 279 K/uL (179-408); RED BLOOD CELL COUNT(AUTO) 4.31 MIL/uL (3.63-4.92); RED CELL DISTRIBUTION WIDTH 13.6 % (12.3-17.7); WHITE BLOOD COUNT (AUTO) 8.3 K/uL (3.8-11.8)
[2023-03-06 07:07] LABS: CALCIUM 8.1 mg/dL (8.5-10.1); CARBON DIOXIDE 25 mmol/L (21-32); CHLORIDE 106 mmol/L (98-107); CREATININE 0.7 mg/dL (0.6-1.3); GLUCOSE 93 mg/dL (74-106); MAGNESIUM 2.9 mg/dL (1.8-2.4); PHOSPHOROUS 2.7 mg/dL (2.5-4.9); POTASSIUM 3.8 mmol/L (3.5-5.1); SODIUM SERUM 138 mmol/L (136-145); UREA NITROGEN, BLOOD 25 mg/dL (7-18)
[2023-03-06 07:20] LABS: DIFFERENTIAL COMMENT 1
[2023-03-06 08:00] VITALS: BP 136/74; TEMP 98; O2SAT 98
[2023-03-06] MEDS: SUCRALFATE 1 G TABLET PO SCH (08:23)
[2023-03-06] MEDS: FLUTICASONE/VILANTEROL 1 EACH BLST.W.DEV IH SCH ×3 (08:23→08:32)
[2023-03-06] MEDS: PANTOPRAZOLE SODIUM 40 MG TABLET.DR PO SCH (08:23)
== END 2023-03-06 11:00 | disposition home or self-care (01) | DRG 392 ==
LOC: MERGE 14:37 → ER 14:37 → MEDSURG3 21:32
PROVIDERS: ADMIT Nurse Practitioner Acute Care; ATTEND Nurse Practitioner Acute Care
DX: K29.70 Gastritis, unspecified, without bleeding (principal); E89.0 Postprocedural hypothyroidism; G47.00 Insomnia, unspecified; H40.9 Unspecified glaucoma; Z79.890 Hormone replacement therapy; Z88.2 Allergy status to sulfonamides; Z91.018 Allergy to other foods; Z88.5 Allergy status to narcotic agent; Z79.899 Other long term (current) drug therapy; Z87.19 Personal history of other diseases of the digestive system
CPT/HCPCS: 36415; 71045; 83690; 83735; 84100; 84443; 84484; 85025; A4606; A4663; C9113; G0378; J2405; J3490; J7040